=== PATIENT | male | born 1995 | race Caucasian/White ===

== ENCOUNTER 2019-03-12 08:43 | Emergency (ER) | payer OTHER ==
[~2019-03-12] VITALS: Ht 182.9 cm; Wt 77.6 kg
--- NOTE | 2019-03-12 08:50 | NUR ---
CHRIST RA60 "Took ecstasy and marijuana last night woke up and felt heart racing". PATIENT DESCRIBES PAIN SHARP, LOCATED AT MID CHEST AREA, RADIATING TO NECK GOING TO THE HEAD. 08/26 PS. TO ER BED 10, HOOKED TO BEEF [facility]ARMER, CHANGED TO HOSP GOWN, PROVIDED W WARM BLANKET, AOx 4, CAR PRE COOLER AT BEDSIDE.
--- NOTE | 2019-03-12 08:52 | NUR ---
DR LAZARO AT BEDSIDE
[2019-03-12] MEDS ORDERED: IV NS 0.9% 1,000 ML BAG IV ONE ×2 (09:00→09:30)
[2019-03-12 09:10] LABS: BASOPHILS % (AUTO) 0.3 % (0.0-2.0); EOSINOPHILS % (AUTO) 0.1 % (0.0-6.0); HEMATOCRIT 48 % (39-51); HEMOGLOBIN 16.6 g/dL (13.5-17.5); LYMPHOCYTES # (AUTO) 1.3 /CMM (0.8-4.8); LYMPHOCYTES % (AUTO) 12.2 % (20.0-44.0); MEAN CORPUSCULAR HGB CONC 35 g/dl (31.0-36.0); MEAN CORPUSCULAR VOLUME 86 fL (80-96); MONOCYTES # (AUTO) 0.4 /CMM (0.1-1.30); NEUTROPHILS % (AUTO) 83.4 % (43.0-81.0); PLATELET COUNT (AUTO) 341 /CMM (150-450); RED BLOOD CELL COUNT(AUTO) 5.55 MIL/uL (4.5-6.0); WHITE BLOOD COUNT (AUTO) 10.8 K/uL (4.3-11.0)
[2019-03-12 09:26] LABS: ACETAMINOPHEN < 2 ug/ml (10-30); ALANINE AMINOTRANSFERASE 23 U/L (12-78); ALBUMIN 4.9 g/dL (3.4-5.0); ALCOHOL, BLOOD 34 mg/dL (0-0); ALKALINE PHOSPHATASE 84 U/L (46-116); ASPARTATE AMINOTRANSFERASE 23 U/L (15-37); BILIRUBIN,DIRECT 0.1 mg/dL (0.0-0.2); BILIRUBIN,TOTAL 0.5 mg/dL (0.2-1.0); CALCIUM, SERUM 9.7 mg/dL (8.5-10.1); CARBON DIOXIDE 20 mmol/L (21-32); CHLORIDE 104 mmol/L (98-107); CREATININE 1.1 mg/dL (0.6-1.3); GLUCOSE 100 mg/dL (74-106); POTASSIUM 3.5 mmol/L (3.5-5.1); SODIUM SERUM 142 mmol/L (136-145); TOTAL PROTEIN, SERUM 8.1 g/dL (6.4-8.2); UREA NITROGEN, BLOOD 11 mg/dL (7-18)
[2019-03-12] MEDS ORDERED: LORAZEPAM INJ 2 MG/ML VIAL IV ONE ×2 (09:30→10:30)
[2019-03-12] MEDS ORDERED: LORAZEPAM INJ 2 MG/ML VIAL ONE ×2 (09:31→11:21)
--- NOTE | 2019-03-12 10:01 | NUR ---
URINE SAMPLE SENT TO LAB
[2019-03-12 10:21] LABS: APPEARANCE,URINE Clear (CLEAR); BILIRUBIN,URINE Negative (NEGATIVE); BLOOD, URINE Negative Ery/uL (NEGATIVE); COLOR,URINE Yellow (YELLOW); KETONES,URINE 15 (NEGATIVE); LEUKOCYTE ESTERASE ,URINE Negative (NEGATIVE); NITRITE, URINE Negative (NEGATIVE); PH,URINE 8.5 (5.0-8.0); PROTEIN,URINE Negative (NEGATIVE); UGLUCOSE Negative (NEGATIVE); UROBILINOGEN,URINE 0.2 EU/dL (0.2)
[2019-03-12 10:34] LABS: BACTERIA,URINE Few /HPF (None Seen); RBC,URINE 0-2 /HPF (0-2); SQUAMOUS EPITHELIAL CELL,UR Few /HPF (None Seen); WBC,URINE 0-2 /HPF (0-3)
--- NOTE | 2019-03-12 11:26 | NUR ---
RESTING COMFORTABLY. VSS. FRIEND AT BEDSIDE.
--- NOTE | 2019-03-12 13:14 | NUR ---
Patient discharged to home in stable condition. Written and verbal after care instructions given. Patient verbalizes understanding of instruction. IV removed. Catheter intact and site benign. Pressure and 4x4 applied to site. No bleeding noted. Patient left with his friend. Ambulated with steady gait.
[2019-03-12 13:15] VITALS: BP 142/78
== END 2019-03-12 13:15 | disposition home or self-care (01) ==
LOC: ER 08:47
DX: T43.621A Poisoning by amphetamines, accidental (unintentional), initial encounter (principal); R07.89 Other chest pain; R00.2 Palpitations; Z60.2 Problems related to living alone; Y92.89 Other specified places as the place of occurrence of the external cause
CPT/HCPCS: 36415; 71045; 80048; 80076; 80305; 80307; 80329; 81001; 84484; 85025; 93005; 96374; 96376; 99284; G0480; J2060 ×2; J7030 ×2; 81000-TC

== ENCOUNTER 2020-05-24 13:13 | Emergency (ER) | payer OTHER ==
[~2020-05-24] VITALS: Ht 190.5 cm; Wt 79.4 kg
--- NOTE | 2020-05-24 13:40 | NUR ---
palpitations and L sided chest pain x 1 hr. took 90mg of adderal and alcohol last night. Patietn a/ox4, breathing even and unlabored, no sob noted, needs attended.
--- NOTE | 2020-05-24 13:45 | NUR ---
iv line established. Placed on the hall monitor.
[2020-05-24] MEDS ORDERED: LORAZEPAM INJ 2 MG/ML VIAL ONE (14:29)
[2020-05-24] MEDS ORDERED: IV NS 0.9% 1,000 ML IV ONE (14:30)
[2020-05-24] MEDS ORDERED: LORAZEPAM INJ 2 MG/ML VIAL IV ONE (14:30)
[2020-05-24 14:46] LABS: BASOPHILS # (AUTO) 0.1 /CMM (0.0-0.2); EOSINOPHILS % (AUTO) 1.2 % (0.0-6.0); HEMATOCRIT 48 % (39-51); HEMOGLOBIN 16.7 g/dL (13.5-17.5); LYMPHOCYTES # (AUTO) 1.1 /CMM (0.8-4.8); MEAN CORPUSCULAR HGB CONC 35 g/dl (31.0-36.0); MEAN CORPUSCULAR VOLUME 86 fL (80-96); MONOCYTES # (AUTO) 0.4 /CMM (0.1-1.30); MONOCYTES % (AUTO) 8.1 % (2.0-12.0); NEUTROPHILS # (AUTO) 3.6 /CMM (1.8-8.9); NEUTROPHILS % (AUTO) 68.7 % (43.0-81.0); PLATELET COUNT (AUTO) 341 /CMM (150-450); RED BLOOD CELL COUNT(AUTO) 5.64 MIL/uL (4.5-6.0); WHITE BLOOD COUNT (AUTO) 5.3 K/uL (4.3-11.0)
[2020-05-24 14:54] LABS: CALCIUM, SERUM 9.6 mg/dL (8.5-10.1); CREATININE 0.7 mg/dL (0.6-1.3); POTASSIUM 3.5 mmol/L (3.5-5.1)
--- NOTE | 2020-05-24 15:14 | NUR ---
Patient sts he's feeling much better. No distress noted.
--- NOTE | 2020-05-24 15:46 | NUR ---
Patient a/ox4, breathing even and unlabored, palpitation subsided. Patient denies any pain or discomfort. Ambulatory with steady gait. IV removed. Catheter intact and site benign. Pressure and 4x4 applied to site. No bleeding noted.Patient discharged to home in stable condition. Written and verbal after care instructions given. Patient verbalizes understanding of instruction.
[2020-05-24 15:47] VITALS: BP 127/71
== END 2020-05-24 15:47 | disposition home or self-care (01) ==
LOC: ER 13:13
DX: R00.2 Palpitations (principal); F19.10 Other psychoactive substance abuse, uncomplicated; Z60.2 Problems related to living alone
CPT/HCPCS: 36415; 71045; 80048; 85025; 93005 ×2; 96361; 96374; 99285; J2060; J7030